=== PATIENT | female | born 1995 | race Caucasian/White ===

== ENCOUNTER 2020-10-13 11:37 | Emergency (ER) | payer OTHER ==
[2020-10-13] MEDS ORDERED: PREDNISONE 20MG20 MG PO (13:39)
== END 2020-10-13 13:55 | disposition home or self-care (01) ==
LOC: FER 11:37 → EDBD 11:37 → FER 13:55
DX: S46.911A Strain of unspecified muscle, fascia and tendon at shoulder and upper arm level, right arm, initial encounter (principal); X58.XXXA Exposure to other specified factors, initial encounter; Z88.8 Allergy status to other drugs, medicaments and biological substances
CPT/HCPCS: 73030

== ENCOUNTER 2021-04-06 23:53 | Emergency (ER) | payer OTHER ==
[~2021-04-06 23:53] MED LIST: PREDNISONE 20MG20 MG PO
[2021-04-07 01:54] LABS: BASOPHIL 0.3 % (0-2); EOSINOPHIL 1.3 % (0-5); HCT 35.6 % (37.0-47.0); HGB 11.3 g/dl (12.5-16.0); LYMPHOCYTE 31.1 % (15-48); MCH 28.4 pg (25.0-31.0); MCHC 31.7 g/dL (32.0-36.0); MCV 89.4 fL (78.0-100.0); MONOCYTE 10.4 % (0-12); MPV 10.5 fL (6.0-9.5); NEUTROPHIL 56.6 % (41-80); NRBC 0; PLT 221 K/uL (150-400); RBC 3.98 M/uL (4.20-5.40); RDW 14.1 % (11.5-14.0)
[2021-04-07 02:01] LABS: ALBUMIN 4.4 g/dL (3.4-5.0); BILIRUBIN - TOTAL 0.6 mg/dL (0.2-1.0); BUN/CREAT RATIO (CALC) 17.1 RATIO; CREATININE 0.7 mg/dL (0.51-0.95); GLOBULIN (CALCULATION) 2.8 g/dL; POTASSIUM 3.4 mmol/L (3.5-5.1); TOTAL PROTEIN 7.2 g/dL (6.4-8.2)
[2021-04-07 03:12] LABS: BILIRUBIN NEGATIVE (NEGATIVE); BLOOD NEGATIVE Ery/uL (NEGATIVE); CLARITY CLEAR (CLEAR); COLOR YELLOW (YELLOW); GLUCOSE (U) NORMAL (NORMAL); LEUKOCYTES NEGATIVE Leu/uL (NEGATIVE); NITRITE NEGATIVE (NEGATIVE); PROTEIN NEGATIVE (NEGATIVE); UROBILINOGEN 0.2 mg/dL (0.2-1.0); pH 6.5 (5.0-9.0)
[2021-04-07 03:16] LABS: AMPHETAMINES NEGATIVE (NEGATIVE); BARBITURATES NEGATIVE (NEGATIVE); ECSTASY (MDMA) NEGATIVE (NEGATIVE); MARIJUANA (THC) POSITIVE (NEGATIVE); METHADONE NEGATIVE (NEGATIVE); OPIATES NEGATIVE (NEGATIVE); OXYCODONE NEGATIVE (NEGATIVE)
[2021-04-07] MEDS ORDERED: AUGMENTIN 875-1 EACH PO (03:28)
[2021-04-07] MEDS ORDERED: ONDANSETRON ODT4 MG PO (03:28)
[2021-04-07] MEDS ORDERED: ANTIVERT25 MG PO (03:28)
== END 2021-04-07 03:45 | disposition home or self-care (01) ==
LOC: FER 23:53
PROVIDERS: Internal Medicine
DX: H66.93 Otitis media, unspecified, bilateral (principal); J32.9 Chronic sinusitis, unspecified; F17.210 Nicotine dependence, cigarettes, uncomplicated; J45.909 Unspecified asthma, uncomplicated; Z88.7 Allergy status to serum and vaccine
CPT/HCPCS: 36415; 80053; 80305; 81003; 84145; 85025; 93005

== ENCOUNTER 2021-07-30 09:21 | Emergency (ER) | payer OTHER ==
[~2021-07-30 09:21] MED LIST changes: +ANTIVERT25 MG PO; +AUGMENTIN 875-1 EACH PO; +ONDANSETRON ODT4 MG PO
[2021-07-30 10:57] LABS: BASOPHIL 0.5 % (0-2); EOSINOPHIL 0.2 % (0-5); HCT 32.9 % (37.0-47.0); LYMPHOCYTE 33.2 % (15-48); MCH 29.2 pg (25.0-31.0); MCHC 33.4 g/dL (32.0-36.0); MCV 87.3 fL (78.0-100.0); MONOCYTE 8.2 % (0-12); MPV 10.1 fL (6.0-9.5); NEUTROPHIL 57.2 % (41-80); NRBC 0; PLT 200 K/uL (150-400); RBC 3.77 M/uL (4.20-5.40); RDW 14.7 % (11.5-14.0); WBC 5.5 K/uL (4.0-10.5)
[2021-07-30 10:57] LABS: BILIRUBIN 1+ mg/dL (NEGATIVE); BLOOD NEGATIVE Ery/uL (NEGATIVE); CLARITY CLEAR (CLEAR); COLOR YELLOW (YELLOW); GLUCOSE (U) NORMAL (NORMAL); LEUKOCYTES NEGATIVE Leu/uL (NEGATIVE); NITRITE NEGATIVE (NEGATIVE); PROTEIN NEGATIVE (NEGATIVE); SPECIFIC GRAVITY 1.025 (1.001-1.030)
[2021-07-30 11:18] LABS: BUN/CREAT RATIO (CALC) 10.9 RATIO; CREATININE 0.64 mg/dL (0.51-0.95); POTASSIUM 3.5 mmol/L (3.5-5.1)
== END 2021-07-30 12:24 | disposition home or self-care (01) ==
LOC: FER 09:21
PROVIDERS: Emergency Medicine
DX: O21.9 Vomiting of pregnancy, unspecified (principal); O99.891 Other specified diseases and conditions complicating pregnancy; R19.7 Diarrhea, unspecified; O99.331 Smoking (tobacco) complicating pregnancy, first trimester; F17.210 Nicotine dependence, cigarettes, uncomplicated; Z88.8 Allergy status to other drugs, medicaments and biological substances
CPT/HCPCS: 36415; 80048; 81003; 85025; 99284

== ENCOUNTER 2021-09-08 10:37 | Emergency (ER) | payer OTHER ==
[2021-09-08 14:04] LABS: BASOPHIL 0.3 % (0-2); EOSINOPHIL 0.3 % (0-5); HCT 37.3 % (37.0-47.0); HGB 12.3 g/dl (12.5-16.0); LYMPHOCYTE 17.4 % (15-48); MCH 28.9 pg (25.0-31.0); MCV 87.6 fL (78.0-100.0); MONOCYTE 7.4 % (0-12); MPV 10.3 fL (6.0-9.5); NEUTROPHIL 74.3 % (41-80); NRBC 0; PLT 209 K/uL (150-400); RBC 4.26 M/uL (4.20-5.40); RDW 14.7 % (11.5-14.0); WBC 9.9 K/uL (4.0-10.5)
[2021-09-08 14:36] LABS: CREATININE 0.5 mg/dL (0.51-0.95); POTASSIUM 3.7 mmol/L (3.5-5.1)
== END 2021-09-08 18:00 | disposition home or self-care (01) ==
LOC: FER 10:37
PROVIDERS: Emergency Medicine
DX: O99.891 Other specified diseases and conditions complicating pregnancy (principal); R10.2 Pelvic and perineal pain; O99.331 Smoking (tobacco) complicating pregnancy, first trimester; F17.200 Nicotine dependence, unspecified, uncomplicated; Z88.8 Allergy status to other drugs, medicaments and biological substances; Z3A.12 12 weeks gestation of pregnancy
CPT/HCPCS: 36415; 76817; 80048; 85025